=== PATIENT | female | born 1980 | race Caucasian/White ===

== ENCOUNTER 2023-11-03 08:47 | Outpatient (AMB) | payer OTHER, SELFPAY ==
--- NOTE | 2023-11-03 08:51 | A.SPINEOV_ITS ---
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 Howard is here today c/o Right sided low back pain that radiates down to the thigh. 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 She is a very nice 42-year-old female who sometime in June awoke and had pain in her back and left buttock that was so severe she could not stand up straight. For few days she was in bed but gradually the pain relented. She was sent to physical therapy to try to treat some residual back pain and left buttock pain. Unfortunately they had her doing pretty strenuous exercises and it only seemed to aggravate things. When she stopped it seemed to get a little bit better. She went on vacation sometime in September of this year and when she got back she returned to work in a flared up again. She was in intense amounts of pain. She underwent an MRI showing herniated disc fragment on the left at L5-S1. She has been taking Motrin, Tylenol. She was trialed on a steroid pack. These things seem to help a little bit but nothing seems to give her any kind of meaningful relief. She has having a lot of difficulty sleeping. Walking and general activity is also quite difficult. PMH: She is otherwise healthy, has never had surgery and reports no medical problems. Social hx: She does smoke about half a pack a day, does not use any alcohol or recreational drugs Medications: Ibuprofen, Tylenol Allergies: None Physical exam: Strength is normal in the lower extremities, absent left Achilles reflex, she has an antalgic gait. Imaging review: Lumbar MRI done at [place] shows degenerative disc at L5-S1 with a large extruded disc fragment on the left at L5-S1 compressing the left S1 nerve root Impression: 42-year-old female presents to the office today for a left low back and left buttock pain consistent with a herniated disc on the left at L5-S1. She also has an absent Achilles reflex. She is in significant amounts of pain. She tried physical therapy, waiting this out for few months and medications but nothing seems to be helping. She is very frustrated with the quality of her life and her ability to be active at this point. She has not sleeping. I reviewed all her imaging with her, explained her this is something that typically Dr. Goodman would offer a left L5-S1 microdiskectomy if the pain is this severe. Obviously all the conservative options are still available and these were all explained to her. She is interested in proceeding with surgery. I tentatively gave her a date for December 02. We discussed the procedure at length as well as risks, benefits and recovery. She does have a 2nd consultation at [facility] with . I am sure he will give her similar options. She is looking to get this done BRUNILDA. She will call us back to let us know how she would like to proceed. Pt was given risk and benefits of surgery including but not limited to infection, hematoma , nerve injury,durotomy, weakness,bowel/bladder injury, pe rsistent pain, recurrent disc herniation as well as the option to continue with conservative treatment and patient wishes to proceed with surgery. Pt is aware they should stop their motrin, aspirin 7 days prior to surgery. All questions were answered to the best of our ability. If there is anything about this patients medical history that we have overlooked or concerns you have about us proceeding with surgery we would appreciate any input you can offer. Thank you for allowing us to care for your patient. The total time spent with this visit with this patient was 45 minutes reviewing history, physical exam, lumbar imaging review, and implementation of treatment plan or further diagnostic testing Chris Goodman MD,PhD [facility] Coding Level of Care Code New Pt Level 4 (01501) Diagnoses Lumbar disc herniation M51.26
== END 2023-11-03 10:44 | disposition home or self-care (01) ==
PROVIDERS: PCP Internal Medicine; Visit Provider Physician Assistant
DX: M51.26 Other intervertebral disc displacement, lumbar region (principal)
CPT/HCPCS: 99204

== ENCOUNTER → 2023-11-03 08:47 | Outpatient (BNVA) | payer OTHER, SELFPAY | PROVIDERS: PCP Internal Medicine; Visit Provider Physician Assistant ==